=== PATIENT | male | born 1945 | race Caucasian/White ===

== ENCOUNTER → 2017-02-17 | Day surgery (SDC) | payer OTHER ==
[2017-01-26 14:07] VITALS: Ht 177.8 cm; Wt 118.2 kg
[2017-02-01 14:44] LABS: BASO % 0.3 %; BASO ABS # 0.02 K/uL (0-0.2); COMPLETE YES; EOS % 1.8 %; HEMATOCRIT 47.7 % (42-52); IG% 0.4 %; LYMPH % 23.2 %; LYMPH ABS # 1.84 K/uL (1.2-3.4); MEAN CELL VOLUME 91.4 fL (80-100); MEAN CORPUSCULAR HEMOGLOBIN 29.5 pg (25-34); MEAN CORPUSCULAR HGB CONC 32.3 g/dl (32-36); MEAN PLATELET VOLUME 11.5 fL (7.4-10.4); MONO % 6.8 %; NEUT % 67.5 %; PLATELET COUNT 156 K/uL (130-400); RED BLOOD COUNT 5.22 M/uL (4.7-6.1); WHITE BLOOD COUNT 7.92 K/uL (4.8-10.8)
[2017-02-01 15:08] LABS: BUN/CREATININE RATIO 16.5 (10-20); CALCIUM 8.9 mg/dl (8.5-10.1); CREATININE 1.1 mg/dl (0.60-1.40); POTASSIUM 3.9 mmol/L (3.5-5.1)
[~2017-02-17] VITALS: Ht 177.8 cm; Wt 118.2 kg
[~2017-02-17] MED LIST: ASPI81TA28 PO; ATROPINE SULFATE 0.1 MG/ML 5ML SYR IV PRN; BUPIVACAINE/EPINEPHRINE 0.25% 1:200,000 30 ML VIAL ONE; BUPIVACAINE/EPINEPHRINE 0.5% MPF 1:200,000 10 ML VIAL ONE; CEFAZOLIN 2000 MG/60 ML D5W IV SCH; DEXAMETHASONE SOD INJ 4 MG/ML VIAL ONE; EpHEDrine SULFATE INJ 50 MG/ML AMP IV PRN; EpINEphrine INJ 1MG/ML AMP 1 MG/ML AMP ONE; FENTANYL CITRATE INJ 50 MCG/1 ML 2 ML VIAL IV PRN; FENTANYL CITRATE INJ 50 MCG/1 ML 2 ML VIAL ONE; GLUCTAB7 PO; KETO10TA PO; LACTATED RINGER'S 1000ML 1,000 ML IV SCH; LIDOCAINE HCL 2% 2 ML VIAL (20MG/ML) ONE; MIDAZOLAM HCL 1 MG/ML 2ML VIAL ONE; OMEG10007 PO; ONDANSETRON INJ 2 MG/ML 2 ML VIAL IV PRN; OXYC-57 PO; OXYCODONE/ACETAMINOPHEN 5-325 TAB PO PRN; PROMETHAZINE HCL INJ 6.25 MG in SODIUM CHLORIDE 0.9% 50ML 50 ML IV PRN; PROPOFOL IV EMULSION 10 MG/ML 20 ML VIAL IV ONE; PRVC40 PO; SODIUM CHLORIDE 0.9% 1000ML 1,000 ML IV SCH
--- NOTE | 2017-02-17 06:49 | History & Physical Bridge - SC ---
H&P Re-Evaluation Bridge Note: I have examined the patient, reviewed the History & Physical and in the interval since the performance of the History & Physical I have noted the following changes of clinical significance: No changes noted
[2017-02-17 10:16] VITALS: TEMP 36.4
--- NOTE | 2017-02-17 10:19 | Discharge Instructions-SurgCtr ---
Discharge Instructions Date of Service Feb 17, 2017. Visit Reason for Visit: Left Shoulder Rotator Cuff Tear Discharge Discharge Diagnosis / Problem: SAME ABOVE Discharge Goals Goal(s): Decrease discomfort, Improve function Medications Stopped Medications Name(s): all meds stopped 10 days ago. Restart Stopped Medication(s): MAY RESTART 02/17/2017 Activity Recommendations Activity Limitations: as noted below Lifting Limitations: until after follow-up appointment Exercise/Sports Limitations: until after follow-up appointment Shower/Bathe: tomorrow Anesthesia . Post Anesthesia Instructions: If you have had General Anesthesia or IV Sedation: * Do not drive today. * Resume driving when surgeon permits. * Do not make important decisions or sign legal documents today. * Call surgeon for: 1. Temperature elevations greater than 101 degrees F. 2. Uncontrollable pain. 3. Excessive bleeding. 4. Persistent nausea and vomiting. 5. Medication intolerance (nausea, vomiting or rash). * For nausea and vomiting use only clear liquids such as: tea, soda, bouillon until nausea subsides, then gradually increase diet as tolerated. * If you have any concerns or questions, call your surgeon's office. If physician is unavailable and it is an emergency, call 911 or go to the nearest emergency room. . Instructions / Follow-Up Instructions / Follow-Up MEDICATIONS: * Resume previous medications unless instructed otherwise by your surgeon. * Always take pain medication on a full stomach or with food to avoid upset stomach. * Do not drink alcohol or drive while taking narcotics. * Ibuprofen or Tylenol may be taken if narcotic not needed. SPECIAL CARE INSTRUCTIONS: __ None _X_ Keep extremity elevated and iced x 48 hours; apply ice 20-30 minutes 8-10 times/day. May remove at night. __ Sling __24 hrs/day __ Remove at night _X_ Shoulder Immobilizer (MAY REMOVE AFTER 48 HOURS ONLY TO SHOWER AND FOR THERAPY) _X_ 24 hrs/day __ Remove at night _X_ Dressing __ Maintain until seen in office, may shower with plastic over site _X_ Remove dressings in 24-48 hours and then may shower _X_ Cover incisions with band-aids after showering __ Do not remove steri-strips Call physician if chills or temperature rises above 102 degrees or pain unrelieved by prescribed pain medications at . . Diet Recommendations Home Diet: no limitations Procedures Procedures Performed: Left Shoulder Arthroscopy With Large Rotator Cuff Repair, Acromioplasty Pending Studies Studies pending at discharge: no Work Instructions Return To Work: after follow-up Lifting Limitations: NO LIFTING WITH LEFT ARM Medical Emergencies . Who to Call and When: Medical Emergencies: If at any time you feel your situation is an emergency, please call 911 immediately. . Non-Emergent Contact Non-Emergency issues call your: Primary Care Provider Call Non-Emergent contact if: you have a fever, temperature is above 101.5 . . "Provider Documentation" section prepared by Kofi Escalante. .
--- NOTE | 2017-02-17 10:39 | OPERATIVE REPORT ---
DATE OF OPERATION: 02/17/2017 PREOPERATIVE DIAGNOSIS: Medium sized rotator cuff tear of the left shoulder. POSTOPERATIVE DIAGNOSIS: Large rotator cuff tear of the left shoulder. PROCEDURE: Left shoulder diagnostic arthroscopy with limited debridement, acromioplasty and large rotator cuff repair. SURGEON: Dr. Candido Zhang. MANAGER SOCIAL: Miguel Escalante PA-C, whose assistance was necessary for positioning the arm and helping with instrumentation. ANESTHESIA: Sedation with a left interscalene nerve block. COMPLICATIONS: None. CONDITION: Stable to PACU. 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 He had significant weakness. MRI showed a medium cuff tear. He elected to undergo arthroscopy. OPERATION AND FINDINGS: On 02/17/2017 he arrived at [facility] for the above procedure. He was seen in the preoperative holding area and the operative extremity was identified and signed. He was given preoperative antibiotics and a left interscalene nerve block. He was taken back to the room, laid on the table in supine position, given basic sedation. The left shoulder was then prepped and draped in sterile fashion. Time-out was done and the patient and operative extremity was properly identified. A scope was introduced in the posterior portal. Diagnostic arthroscopy showed no cartilage damage to the humeral head or the glenoid. There was a lot of fraying of the anterior labrum. The biceps tendon was absent. There was a tear of the entire supraspinatus and upper half of the infraspinatus. The teres minor and subscapularis were intact. An anterior portal was made. A shaver was used to do a limited debridement of the intraarticular structures. The scope was then placed in the subacromial space, a lateral portal was made. A shaver was used to do a complete subacromial and subdeltoid bursectomy. An ablator was used to tease the coracoacromial ligament off the undersurface of the acromion and a 5-0 chau was used to complete an acromioplasty of a Bigliani type 3 acromion. A shaver was used to remove any excess debris and attention was turned to the rotator cuff. There was a large crescent shaped rotator cuff tear. An additional anterolateral portal was made. Anusha cannulas were placed in each of the lateral portals. The greater tuberosity was prepared with a ring curette and microfracture. The rotator cuff was then fixed with an Arthrex SpeedBridge configuration using 3 medial row SwiveLock suture anchors and 3 lateral row SwiveLock suture anchors. FiberTapes were used. This was done as a knotless repair. I was able to be good tension of the cuff and a nice repair. Multiple pictures were taken. The scope was placed back into the glenohumeral joint and the articular margin of the rotator cuff had been restored. Pictures were taken. Arthroscopic instruments were removed from the shoulder. Portal sites were closed with 3-0 nylon. He was then placed in a soft dressing and abduction arm sling. He was then taken to the postanesthesia care unit in stable condition. He tolerated the procedure well. I attest to the content of the Intraoperative Record and any orders documented therein. Any exception s are noted below.
[2017-02-17 10:47] VITALS: BP 164/74; PULSE 65; O2SAT 99
--- NOTE | 2017-02-17 11:20 | Anesthesia Progress Nt - [facility] ---
Anesthesia Post Op Note Date & Time Feb 17, 2017 at 11:20 Vital Signs Pain Intensity: 0 Vital Signs Past 12 Hours Date Time Temp Pulse Resp B/P (MAP) Pulse Ox O2 Delivery O2 Flow Rate FiO2 02/17/17 10:47 65 16 164/74 (104) 99 Room Air 02/17/17 10:16 36.4 65 18 147/72 (97) 97 Room Air 02/17/17 08:38 71 02/17/17 08:38 71 25 100 02/17/17 08:37 64 25 100 02/17/17 08:37 65 02/17/17 08:36 65 23 100 02/17/17 08:36 65 02/17/17 08:34 162/75 02/17/17 08:31 66 02/17/17 08:31 67 22 100 02/17/17 08:26 63 0 97 02/17/17 08:26 63 02/17/17 08:21 64 02/17/17 08:21 64 0 98 02/17/17 08:16 63 02/17/17 08:16 63 0 96 02/17/17 07:42 36.6 66 16 181/66 (104) 96 Room Air 02/17/17 07:41 61 02/17/17 07:41 61 181/99 97 Notes Mental Status: alert / awake / arousable, participated in evaluation Pt Amnestic to Procedure: Yes Nausea / Vomiting: adequately controlled Pain: adequately controlled Airway Patency, RR, SpO2: stable & adequate BP & HR: stable & adequate Hydration State: stable & adequate Anesthetic Complications: no major complications apparent Block working in pacu
--- NOTE | 2017-02-17 12:44 | [facility] Post Operative Brief Note ---
Immediate Operative Summary Operative Date Feb 17, 2017. Pre-Operative Diagnosis Rotator Cuff Tear, Left Shoulder Post-Operative Diagnosis same as preop Procedure(s) Performed Left Shoulder Arthroscopy With Large Rotator Cuff Repair, Acromioplasty Surgeon Dr. Zhang Orthotics Prosthetics Assistant Surgeon(s) ADDIS Speras Estimated Blood Loss 5ml Findings as above Specimens none, per surgeon. Complication(s) None Disposition Recovery Room / PACU
== END | disposition home or self-care (01) ==
LOC: X.SURG 07:33
PROVIDERS: ATTEND Orthopaedic Surgery
DX: S46.012A Strain of muscle(s) and tendon(s) of the rotator cuff of left shoulder, initial encounter (principal); X50.0XXA Overexertion from strenuous movement or load, initial encounter; E78.00 Pure hypercholesterolemia, unspecified; Z79.82 Long term (current) use of aspirin; Z79.899 Other long term (current) drug therapy

== ENCOUNTER 2022-08-10 10:12 | Observation (INO) ==
--- NOTE | 2022-07-14 13:27 | PAT Medication Instructions ---
Medication Instructions Date of Service July 14, 2022 Home Medications losartan 100 mg tablet 100 mg PO QAM pravastatin 40 mg tablet 40 mg PO QAM DO NOT take the morning of surgery losartan 100 mg tablet 100 mg PO QAM Take morning of surgery With a small sip of water, OTHERWISE NOTHING TO EAT OR DRINK AFTER MIDNIGHT: pravastatin 40 mg tablet 40 mg PO QAM Other Notes If you have any questions please call us at [phone] or [phone] or [phone] or [phone]
--- NOTE | 2022-07-20 14:32 | Anesthesiology Consultation ---
Date of Service July 20, 2022 Assessment & Plan (1) Encounter for pre-operative examination: - hypertension: Case discussed in detail with Dr. Wynn while patient was in PAT clinic. He advised pt follow-up with his PCP outpatient prior to surgery, does not need to see cardio from his standpoint. Pt was advised to monitor his BP at home and if remains elevated, to seek medical care. 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 Optimization form completed, to be faxed to PCP. Surgeon's office made aware. - Outpatient joint assessment: Patient is currently scheduled for inpatient pathway. If re-evaluated pending system levels during current pandemic/surgeon requests outpatient pathway, patient is not acceptable candidate for outpatient joint program from anesthesia standpoint. Chart Review Chart Review: Pending: Refer to Additional Notes / Consult section and Patient seen in Pre Admission Testing Teaching & Discussion Pre-Anesthesia Teaching/Discussion Notes: Instructed NPO after midnight before surgery, except medications with 15 cc of water. Medication instructions provided according to the PAT guidelines. History Surgery Operation Date: 08/10/22 12:45 Proposed Procedures p Right Total Knee Arthroplasty - Candido Zhang, Height/Weight Height: 5 ft 10 in Weight: 117.934 kg Allergies Allergy/AdvReac Type Severity Reaction Status Date / Time No Known Drug Allergies Allergy Unknown . Verified 07/14/22 10:36 Medications Home Medications Medication Instructions Recorded Confirmed Last Taken losartan 100 mg tablet 100 mg PO QAM 07/14/22 07/14/22 Unknown pravastatin 40 mg tablet 40 mg PO QAM 07/14/22 07/14/22 Unknown Past Medical History Medical History (Updated 07/20/22 @ 14:55 by Marleni Baker PA-C) CKD (chronic kidney disease) stage 3, GFR 30-59 ml/min GERD (gastroesophageal reflux disease) rare, if eats late Hyperlipidemia Hypertension controlled, stable per pt LBBB (left bundle branch block) known since 03/2017, episode of presyncope 06/2020 with unremarkable results per remote [facility] cardio records, pt to f/u with cardio prn; denies additional episodes of presyncope Stroke multiple chronic appearing lacunar infarcts on 06/2020 head cta, pt states was never advise of these findings Urinary stress incontinence, male Patient denies h/o seizures, heart attack, heart failure, DM, blood clots or blood transfusions. Exercise / Class Metabolic Activity II 4-5 Yardwork/Stairs/Walk up hill (denies chest discomfort or shortness of breath with 1 FOS) Past Family History Family History Other No family history of adverse response to anesthesia Past Surgical History Surgical History H/O shoulder surgery LEFT History of cataract surgery RT History of tooth extraction History of total hip arthroplasty LEFT Past Anesthesia History No Hx of Anesthesia Complications and No Family Hx of Anesthesia Complications History of PONV No Hx of PONV and No Hx of Motion Sickness Social History Smoking Status: Never smoker Do You Dip or Chew Tobacco: No Hx Alcohol Use: Yes alcohol intake frequency: holidays/special occasions only substance use type: does not use Review of Systems Snoring, denies witnessed apneas. Patient denies chest pain, shortness of breath, dyspnea on exertion, fever, chills, cough, wheezing, headache, dizziness, lightheadedness, visual changes, gait or speech change, numbness, weakness or palpitations. Physical Exam Vital Signs Vitals BP 186/74 automatic left arm sitting; 190/72 manual left arm sitting-pt states is very anxious being in hospital setting; manual repeat after pt rested x 15 min 183/72 left arm sitting; manual repeat after additional 15 min 176/70. Pt states home BP readings are 160s/80s. He states did take antihypertensive today. P 65 TEMP 98.4 SP02 97% on RA RESP 17 Physical Resting comfortably in chair in NAD, alert and oriented, responding appropri ately TMD 3.5 finger breadths Mallampati Score 3 Dentition: intact, denies chipped or loose teeth, caps/crowns, implants or bridges Lungs: normal respiratory effort. Clear throughout to auscultation, no adventitious breath sounds Cardiac: regular rate and rhythm, no murmurs noted Carotid arteries: negative bruit bilat Lab Results Anesthesia Preop Results Results Anesthesia Widget: WBC 8.12 K/ul (4.8-10.8) 07/20/22 Hgb 14.6 g/dl (14.0-18.0) 07/20/22 Hct 44.3 % (40.1-51.0) 07/20/22 Plt 157 K/uL (130-400) 07/20/22 Na 141 mmol/L (136-145) 07/20/22 K 4.9 mmol/L (3.5-5.1) 07/20/22 Cl 106 mmol/L (98-107) 07/20/22 CO2 32 mmol/L (21-32) 07/20/22 BUN 19 mg/dl (6-23) 07/20/22 Creat 1.19 mg/dl (0.6-1.4) 07/20/22 Glucose Level 80 mg/dl (70-99(Fasting)) 07/20/22 PT 10.9 Seconds (9.0-12.0) 07/20/22 PTT 28.5 Seconds (21.0-31.0) 07/20/22 INR 1.0 (0.9-1.1) 07/20/22 Blood Type O Positive 07/20/22 Antibody Screen NEGATIVE 07/20/22 Testing Electrocardiogram Date: 07/20/22 NSR, rate 65 bpm Rightward axis LBBB Chest X-Ray Date: 07/20/22 Lung volumes are normal. Lungs are clear. There is no pneumothorax or pleural ef fusion. Cardiac size is normal. Mediastinal contours are normal. There is no evidence for pulmonary edema. IMPRESSION: No acute cardiopulmonary findings. Stress Test Date: 06/23/20 Pharmacologic MPHR 61% Negative EF 56% Other Testing Head and neck CTA 07/01/2020 1. No acute intracranial hemorrhage or mass effect. 2. Chronic-appearing lacunar infarcts in the right caudate nucleus head and left centrum semiovale. A stroke protocol brain MRI can be performed for further evaluation if there is clinical concern for acute ischemia. 3. Atherosclerosis without significant stenosis by NASCET criteria at the carotid bulbs and no evidence of intracranial large vessel occlusion. Carotid doppler 04/12/2017 Right carotid artery duplex examination indicates evidence of <50% stenosis of the internal carotid artery. Left carotid artery duplex examination indicates evidence of <50% stenosis of the internal carotid artery. COVID-19 Risk Screen Screening Information COVID-19 Screen Date: 07/20/22 Exposure 21 Days Family/Household +COVID Last 21 Days: No Exposure 10 Days Any COVID Exposure Last 10 Days: No Symptoms Last 10 Days Experienced COVID Sx Last 10 Days: No + COVID 0-90 Days COVID + in Last 0-90 Days: No
[~2022-08-10 10:12] MED LIST changes: +ACETAMINOPHEN 500 MG TAB PO SCH; -ASPI81TA28 PO; -ATROPINE SULFATE 0.1 MG/ML 5ML SYR IV PRN; +BUPIVACAINE 0.5 % 5 MG/1 ML PF 10ML VIAL ONE; -BUPIVACAINE/EPINEPHRINE 0.25% 1:200,000 30 ML VIAL ONE; -BUPIVACAINE/EPINEPHRINE 0.5% MPF 1:200,000 10 ML VIAL ONE; -CEFAZOLIN 2000 MG/60 ML D5W IV SCH; -DEXAMETHASONE SOD INJ 4 MG/ML VIAL ONE; -EpHEDrine SULFATE INJ 50 MG/ML AMP IV PRN; -EpINEphrine INJ 1MG/ML AMP 1 MG/ML AMP ONE; +FAMOTIDINE 20 MG TAB PO SCH; -FENTANYL CITRATE INJ 50 MCG/1 ML 2 ML VIAL IV PRN; -FENTANYL CITRATE INJ 50 MCG/1 ML 2 ML VIAL ONE; +GABAPENTIN 300 MG CAP PO SCH; -GLUCTAB7 PO; -KETO10TA PO; +Ketorolac (*for OR use only*) 30 MG, dexAMETHasone 4 MG, KETAMINE HCL (**OR use only) 1... INFIL SCH; -LACTATED RINGER'S 1000ML 1,000 ML IV SCH; -LIDOCAINE HCL 2% 2 ML VIAL (20MG/ML) ONE; +LR 500ML BOLUS, THEN 15ML/HR IV SCH; +LR 60ML/HR IV SCH; -MIDAZOLAM HCL 1 MG/ML 2ML VIAL ONE; -OMEG10007 PO; -ONDANSETRON INJ 2 MG/ML 2 ML VIAL IV PRN; -OXYC-57 PO; -OXYCODONE/ACETAMINOPHEN 5-325 TAB PO PRN; -PROMETHAZINE HCL INJ 6.25 MG in SODIUM CHLORIDE 0.9% 50ML 50 ML IV PRN; -PROPOFOL IV EMULSION 10 MG/ML 20 ML VIAL IV ONE; -PRVC40 PO; +ROPIVACAINE 0.5% 5 MG/ML 30 ML VIAL ONE; -SODIUM CHLORIDE 0.9% 1000ML 1,000 ML IV SCH; +TRANEXAMIC ACID 1,000 MG **IV Intra-op IV SCH; +TRANEXAMIC ACID 1,000 MG **IV Pre-op IV SCH; +dexAMETHasone 4 MG TAB PO SCH
--- NOTE | 2022-08-10 11:03 | History & Physical Report ---
Date of Service August 10, 2022 Assessment & Plan (1) Osteoarthritis of right knee: We will proceed with a right total knee arthroplasty. Postoperatively he will be started on aspirin for DVT prophylaxis and kept overnight in the hospital for postoperative medical management. He plans to go to outpatient physical therapy at [place] after discharge. History of Present Illness Chief Complaint: Osteoarthritis of the right knee. Primary Care Provider: NO PCP Arcenio is a pleasant 77-year-old male who Idid a rotator cuff surgery on in the past.Unfortunately, he has been dealing with debilitating knee pain. He haspain when walking longdistances and especially going up and downstairs. He hadx-rays years ago, which showed some arthritis. He has had injections. He has done therapy. He has been taking anti-inflammatories without relief. Unfortunately, he is still really struggling with his knees. New x-rays show worsening osteoarthritis of the right knee. After failing conservative treatment, he has elected proceed with a right total knee arthroplasty. . Allergies Allergy/AdvReac Type Severity Reaction Status Date / Time No Known Drug Allergies Allergy Unknown . Verified 08/10/22 11:02 Home Medications Medication Instructions Recorded Confirmed Type losartan 100 mg tablet 100 mg PO QAM 07/14/22 07/14/22 History pravastatin 40 mg tablet 40 mg PO QAM 07/14/22 07/14/22 History Past Med/Surg History Medical History CKD (chronic kidney disease) stage 3, GFR 30-59 ml/min GERD (gastroesophageal reflux disease) rare, if eats late Hyperlipidemia Hypertension controlled, stable per pt LBBB (left bundle branch block) known since 03/2017, episode of presyncope 06/2020 with unremarkable results per remote [facility] cardio records, pt to f/u with cardio prn; denies additional episodes of presyncope Stroke multiple chronic appearing lacunar infarcts on 06/2020 head cta, pt states was never advise of these findings Urinary stress incontinence, male Surgical History H/O shoulder surgery LEFT History of cataract surgery RT History of tooth extraction History of total hip arthroplasty LEFT Family History Other No family history of adverse response to anesthesia Social History Smoking Status: Never smoker Second Hand Exposure: Yes ( A CHILD); Do You Dip or Chew Tobacco: No; Hx Alcohol Use: Yes Preferred Language: Slovak [employer]rop [employer] Required: No Beliefs That Will Affect Care: None Current Living Situation: Spouse Feels Safe at Home: Yes Safety Concerns: Feels Safe At This Time Assistive Devices: Glasses Assistive Devices Comment: GLASSES FOR DRIVING Review of Systems All systems reviewed & are unremarkable except as noted in HPI & below. Physical Exam On physical examination the right knee, he is a slight varus deformity. He has pain over the distal femoral condyles and over the joint line. He has a trace effusion.. Constitutional WD/WN, vitals as above Eyes PERRL, conjunctivae normal, anicteric sclerae ENMT external ear and nose normal, oropharynx normal Neck trachea midline, no thyromegaly Respiratory normal respiratory effort, lungs clear to auscultation Cardiovascular RRR, no murmur, no edema Gastrointestinal (Abdomen) normal bowel sounds, soft, nontender, no hepatosplenomegaly Skin no rashes, warm and dry Psychiatric A+Ox3, euthymic affect Results & Data Results & Data Laboratory Results . Diagnostic Findings X-rays of the right knee show advanced osteoarthritis with joint space narrowing, osteophyte formation, and [id number] articulation. PG Care Time/CCT Total # of Minutes Spent Total Time Spent with Patient: Total time spent is greater than 50% in coordination of care (as documented) at patient's floor/unit and/or counseling patient: Coding Level of Care Code None Diagnoses Osteoarthritis of right knee M17.11
[2022-08-10] MEDS ORDERED: ePHEDrine sulfate 50 MG/ML AMP IV PRN (11:59)
[2022-08-10] MEDS ORDERED: ATROPINE SULFATE 0.1 MG/ML 10ML SYR IV PRN (11:59)
[2022-08-10] MEDS ORDERED: fentaNYL citrate 100 MCG/2 ML VIAL IV PRN (11:59)
[2022-08-10] MEDS ORDERED: ONDANSETRON INJ 2 MG/ML 2 ML VIAL IV PRN (11:59)
[2022-08-10] MEDS ORDERED: PROPOFOL IV EMULSION 10 MG/ML 20 ML VIAL IV ONE ×3 (12:20→14:02)
[2022-08-10] MEDS ORDERED: MIDAZOLAM HCL 1 MG/ML 2ML VIAL ONE (12:20)
[2022-08-10] MEDS ORDERED: fentaNYL citrate 100 MCG/2 ML VIAL ONE (12:20)
[2022-08-10] MEDS ORDERED: LIDOCAINE 2% MPF LOCAL 5 ML VIAL INFIL ONE (12:20)
[2022-08-10] MEDS ORDERED: ORTHO JOINT ANESTHETIC ONE (12:49)
[2022-08-10] MEDS ORDERED: ePHEDrine sulfate 50 MG/ML AMP ONE (13:23)
--- NOTE | 2022-08-10 15:03 | Operative Report ---
PG Post Operative Report Pre & Post Diagnosis Operation Date: 08/10/22 12:45 Pre-Op Diagnosis: Right Knee Degenerative Joint Disease Post-Op Diagnosis: Right Knee Degenerative Joint Disease I identified the patient and participated in the time-out.: Yes Procedure Operation Date: 08/10/22 12:45 Actual Procedures p Right Total Knee Arthroplasty(Right) - Candido Zhang DO Surgeon Candido Zhang DO Physical Geographer Jackson Marks PA-C Estimated Blood Loss 30 Findings Consistent with Post-Op Diagnosis Specimens Right femoral and tibial bone Description of Procedure Implants used: I used a Sameer Persona total knee arthroplasty system with a size 11 standard PS femur, F tibia, 34 oval patella, and a size 14 CPS polyethylene bearing. All components were cemented in place with Biomet cement. Arcenio arrived [facility] for the above procedure. He was seen in the preoperative holding area and the operative extremity was identified and signed. He was given a preoperative antibiotic, TXA, a spinal anesthetic and an adductor nerve block. He was taken back to the operating room and laid on the table in supine position. He was given basic sedation. The operative knee was then prepped and draped in sterile fashion. A timeout was done, and the patient and the operative extremity was properly identified. A midline incision was made directly over the patella. Dissection was taken down to the extensor mechanism. A midvastus arthrotomy was used. The medial retinaculum was released and the fat pad was mostly excised. The knee was flexed and the ACL, PCL, and meniscus were removed. A drill was sent down the center of the femoral canal followed by an intramedullary rylie. Off that rylie a distal femoral cutting block was placed. 9 mm was resected off the distal femur at 5 of valgus. A posterior referencing AP sizing guide was then placed on the distal femur. The femur measured to be a size 11. 2 drill holes were placed in 3 of external rotation. A 4-in-1 cutting block was then impacted into place. Anterior, posterior, and chamfer cuts were then made. The proximal tibia was then exposed. An external tibial alignment guide was placed. A tibial cut guide was then anchored in place and the proximal tibia was then resected. The posterior aspect of the knee was then opened up and any additional meniscus fragments and osteophytes were removed. The tibia measured to be a size F. The tibial plate was then placed in the appropriate rotation and the tibia was drilled and punched. Trial components were then placed. I used a size 14 CPS polyethylene insert. The knee was brought through a full range of motion and felt to be stable. The peg holes for the femoral component were then drilled. The patella was then everted and 9 mm was resected off the posterior aspect of the patella. The patella measured to be a size 34 oval. 3 peg holes were then drilled. A trial patella was placed. The knee was once again brought through a full range of motion and felt to be stable. Trial components were then removed. The surrounding soft tissues were injected with 100 cc of an orthopedic pain control cocktail. All components were then cemented into place with Biomet cement. The final polyethylene insert was then snapped into place. Once cement was dry the tourniquet was deflated. Hemostasis was obtained. A dilute betadyne lavage was then done for 3 minutes. The joint was then irrigated with normal saline solution. The midvastus arthrotomy was then closed with #1 Vicryl suture. The skin was closed with 2-0 Vicryl, 3-0V lock suture, and di. A soft compressive dressing was placed. He was then transferred to a hospital bed and taken to the postanesthesia care unit in stable condition. He tolerated the procedure well. Jackson Marks PA-C, was present for the entire procedure. He was critical for patient positioning, prepping, draping, retraction exposure, wound closure and application of sterile dressing. I attest to the content of the Intraoperative Record and any orders documented therein. Any exceptions are noted below.
--- NOTE | 2022-08-10 15:29 | XRay Report ---
XR knee RT 1 or 2V routine HISTORY: 77 years-old Male Surgical Post Op right knee total joint arthroplasty COMPARISON: 06/15/2022 TECHNIQUE: 2 views of the right knee FINDINGS: Total joint arthroplasty with patellar resurfacing. Anterior midline skin di are noted along wit h expected postoperative soft tissue swelling with deep tissue air. No acute fracture, dislocation or unexpected opaque foreign body. IMPRESSION: Total joint arthroplasty with expected postoperative changes. ACT 112: Negative or not required by law. The above report was generated using voice recognition software. It may contain grammatical, syntax o r spelling errors. Electronically signed by: Elijah Aranda M.D. 08/10/2022 3:27 PM
[2022-08-10] MEDS ORDERED: oxyCODONE HCL IR 5 MG TAB (IMMEDIATE RELEASE) PO PRN (15:43)
[2022-08-10] MEDS ORDERED: bisacodyL 10 MG SUPP PR PRN (15:43)
[2022-08-10] MEDS ORDERED: NALOXONE HCL 0.4 MG/1 ML VIAL/CARP IV PRN (15:43)
[2022-08-10] MEDS ORDERED: MAGNESIUM HYDROXIDE SUSP 30 ML UDC PO PRN (15:43)
[2022-08-10] MEDS ORDERED: HYDROmorphone INJ 0.5 MG/0.5 ML SYR IV PRN (15:43)
[2022-08-10] MEDS ORDERED: METOCLOPRAMIDE HCL INJ 5 MG/ML 2 ML VIAL IV PRN (15:43)
[2022-08-10] MEDS ORDERED: SODIUM CHLORIDE 0.9% 1000ML 1,000 ML IV SCH (15:43)
--- NOTE | 2022-08-10 16:05 | Anesthesiology Progress Note ---
Date of Service August 10, 2022 Anesthesia Post Procedure Vital Signs Vital Signs: Temp Pulse Pulse Resp BP Pulse Ox O2 Del Method 08/10/22 15:35 98.1 F 64 16 165/71 H 99 Room Air 08/10/22 15:20 97.7 F 72 17 144/75 H 97 Room Air 08/10/22 15:10 66 17 154/71 H 99 Nasal Cannula 08/10/22 15:00 97.9 F 67 17 148/70 H 99 Nasal Cannula 08/10/22 11:05 97.9 F 69 18 172/82 H 96 Room Air O2 Flow Rate 08/10/22 15:35 08/10/22 15:20 08/10/22 15:10 2 08/10/22 15:00 2 08/10/22 11:05 Transfer of Care Handoff Completed per policy Notes Mental Status: alert / awake / arousable and participated in evaluation Patient Amnestic to Procedure: Yes Nausea / Vomiting: adequately controlled Pain: adequately controlled Airway Patency, RR, SpO2: stable & adequate BP & HR: stable & adequate Hydration State: stable & adequate Neuraxial Anesthesia: was administered and sensory block is resolving Anesthetic Complications: no major complications apparent and Pt Satisfied with anesthetic care
[2022-08-10] MEDS: KETOROLAC TROMETHAMINE 15 MG/ML VIAL IV SCH ×2 (17:18→21:27)
[2022-08-10] MEDS: ASPIRIN 81 MG ECTAB PO SCH (20:35)
[2022-08-10] MEDS: DOCUSATE SODIUM 100 MG CAP PO SCH (20:35)
[2022-08-10] MEDS ORDERED: SENNA 8.6 MG TAB PO SCH (21:00)
[2022-08-10] MEDS: ceFAZolin 2000MG 2,000 MG/15 ML SYR IV SCH (21:28)
[2022-08-11] MEDS: KETOROLAC TROMETHAMINE 15 MG/ML VIAL IV SCH ×2 (04:30→10:38)
--- NOTE | 2022-08-11 06:09 | Orthopedic Progress Note ---
Date of Service August 11, 2022 Assessment & Plan (1) Status post right knee replacement: Overall he is doing very well. He is not having much pain in the right knee. He will be seen by physical therapy today for ambulation and range of motion exercises. He is on aspirin for DVT prophylaxis. He can be discharged home later today. The nursing staff can change his dressing before discharge. He will follow-up with orthopedics in 2 weeks. Subjective Arcenio was seen and examined at bedside this morning. Overall is doing very well. He is not having much pain in the right knee. He has been up and ambulating into the hallways. He has no complaints.. Review of Systems All systems reviewed & are unremarkable except as noted in HPI & below. Physical Exam On physical examination of the right knee, the dressing is clean and dry. He has active dorsiflexion plantarflexion of his right ankle.. Results & Data Results & Data Laboratory Results . Diagnostic Findings Postoperative x-rays of the right knee show the prosthesis to be in anatomic alignment without any evidence of fracture, dislocation, or loosening.. PG Care Time/CCT Total # of Minutes Spent Total Time Spent with Patient: Total time spent is greater than 50% in coordination of care (as documented) at patient's floor/unit and/or counseling patient: Coding Level of Care Code 47380 Post Operative Follow-Up Diagnoses Status post right knee replacement Z96.651
--- NOTE | 2022-08-11 06:10 | Discharge Summary ---
Date of Service August 11, 2022 Admission HPI (Per Admitting) Arcenio is a pleasant 77-year-old male who Idid a rotator cuff surgery on in the past.Unfortunately, he has been dealing with debilitating knee pain. He haspain when walking longdistances and especially going up and downstairs. He hadx-rays years ago, which showed some arthritis. He has had injections. He has done therapy. He has been taking anti-inflammatories without relief. Unfortunately, he is still really struggling with his knees. New x-rays show worsening osteoarthritis of the right knee. After failing conservative treatment, he has elected proceed with a right total knee arthroplasty. . Admission Exam (Per Admitting) On physical examination the right knee, he is a slight varus deformity. He has pain over the distal femoral condyles and over the joint line. He has a trace effusion.. Principal Diagnosis Same as "Discharge Diagnosis" noted below under Discharge Instructions. Discharge Exam On physical examination of the right knee, the dressing is clean and dry. He has active dorsiflexion plantarflexion of his right ankle.. Discharge Data Procedures Performed Operation Date: 08/10/22 12:45 Actual Procedures p Right Total Knee Arthroplasty(Right) - Candido Zhang DO Ordered Studies 08/10/22 05:00 US - OR guided needle placemen Routine Hospital Course (1) Status post right knee replacement: On August 10, 2022 Arcenio arrived at [facility] and underwent a right knee replaced without complication. He had a spinal anesthetic. Postoperatively he was started on aspirin for DVT prophylaxis and transferred to the general orthopedic floors. His hospital course was uneventful. On postop day #1, his vital signs were stable and his pain was well controlled. He was able to participate well with physical therapy doing ambulation and range of motion exercises. He was then discharged home. He will follow-up with orthopedics in 2 weeks. PG Care Time/CCT Total # of Minutes Spent Total Time Spent with Patient: Total time spent is greater than 50% in coordination of care (as documented) at patient's floor/unit and/or counseling patient: Discharge Plan Discharge Items Patient Disposition: Home - Home Health Services Reason For Visit: STATUS POST RIGHT KNEE REPLACEMENT Discharge Diagnosis: Status post right knee replacement Activity: Per Instructions section Non-emergency contact: Surgeon Call non-emergency contact if: your wound has increased redness and your wound has increased drainage Follow-up/Referrals: PCP,NO [Primary Care Provider] - Diet: Regular Addtl Attending Provider Instructions: Activity and Therapy Recommendations: * If you are using [facility] then therapy will be provided at your home until they feel you have accomplished all of your goals. * If you are using [facility] then Physical Therapy will be provided until they feel you are ready to start Outpatient Physical Therapy. * If you are not using home therapy then Outpatient Physical Therapy should start about 3-5 days from your day of surgery. Therapy will last about 6-10 weeks * It is important not to put a pillow under your knee when you are relaxing or sleeping. It is just as important to make sure you are getting your knee perfectly straight as it is to regain your knee bend. * You were shown a series of exercises in the hospital. Do these exercises three times each day including the exercises you were shown in physical therapy. * Get up and walk several times each day. For the first four weeks, try not to stand or walk for more than one hour at a time. If you do stand or walk for more than one hour, you will not hurt anything, but your leg will likely swell. * As you feel comfortable, you may change from the walker or crutches to a cane and then to independent walking. Medications: * Narcotic You will likely be sent home from the hospital with a prescription for the narcotic pain medication that worked best throughout your stay. * Aspirin Most patients will be required to take Aspirin 81mg twice a day for 6 weeks after surgery. This is obtained [id number] and a prescription is not necessary. * Other medications may be prescribed for specific circumstances. If you have any questions, please call the office at . * Resume previous home medications unless otherwise instructed TEDs/Elastic Stockings: The white elastic stockings help limit swelling and prevent blood clots from forming in your legs.~ The more you wear them, the more they work. Wear them for six weeks. Dressing Care: The dressing can be changed after physical therapy on postop day #1. Daily dry dressing changes for a few days, especially if the incision is still draining some. If the incision is not draining then you may leave the di open to air. If there is a little bit of drainage or if the di are getting stuck on your clothing then cover the incision with a dry dressing. The di will be removed at your 2 week follow-up appointment. Showering: You may shower 5 days from the day of surgery as long as the incision is no longer draining. You may shower with the di exposed. Let soapy water run over the di and pat them dry. Do not scrub or soak the incision. Things To Watch For: * Drainage from the incision site that occurs more than one week after your surgery. * Increased redness at the incision site. * Fever above 102 degrees Fahrenheit. * Unusual chest pain or shortness of breath. * Call [facility] at with any of the above problems Follow-Up Visit: Follow-up with Dr. Zhang's PA (Candido Mcnamara) 2-3 weeks after your day of surgery. He will remove your di and answer any questions. If you have any additional questions or concerns, Dr Zhang is usually in the office at the same time and will be available An appointment was probably scheduled when you signed-up for surgery in the office. If you have any questions call Office Instructions: More detailed instructions as well as Frequently Asked Questions were provided in a folder by our office when you signed-up for surgery. Please review these instructions when you get home. If you have any further questions or concerns, please feel free to call the office at [phone] Pending Studies at Discharge: No Stand-Alone Forms: My [facility] Medications and DC Order Prescriptions: New aspirin 81 mg Tablet,Delayed Release (Dr/Ec) 81 mg PO BID 42 Days Qty: 84 0RF oxycodone-acetaminophen 5-325 mg tablet 1 tab PO Q6H PRN (Reason: pain) Qty: 30 0RF Continued pravastatin 40 mg Tablet 40 mg PO QAM losartan 100 mg Tablet 100 mg PO QAM tamsulosin [Flomax] 0.4 mg Capsule 0.4 mg PO DAILY torsemide 5 mg Tablet 5 mg PO DAILY Admission Data Admit Date/Time: 08/10/22 15:01 Attending Provider: Candido Zhang Admit Provider: Candido Zhang Primary Care Provider: PCPLEONARDO
[2022-08-11] MEDS: ceFAZolin 2000MG 2,000 MG/15 ML SYR IV SCH (07:56)
[2022-08-11] MEDS ORDERED: dexAMETHasone 4 MG TAB PO SCH (08:00)
[2022-08-11] MEDS: DOCUSATE SODIUM 100 MG CAP PO SCH (08:29)
[2022-08-11] MEDS: ASPIRIN 81 MG ECTAB PO SCH (08:29)
[2022-08-11] MEDS ORDERED: TORSEMIDE 10 MG TAB PO SCH (09:00)
[2022-08-11] MEDS ORDERED: LOSARTAN POTASSIUM 50 MG TAB PO SCH (09:00)
[2022-08-11] MEDS ORDERED: PRAVASTATIN SOD 40 MG TAB PO SCH (09:00)
[2022-08-11] MEDS ORDERED: TAMSULOSIN HCL 0.4 MG CAP PO SCH (09:00)
[2022-08-11] MEDS ORDERED: MULTIVITAMIN TAB PO SCH (09:00)
== END 2022-08-11 13:42 | disposition home health service (06) ==
LOC: 3E 10:12 → ASU 10:12